=== PATIENT | female | born 1985 | race Caucasian/White ===

== ENCOUNTER 2021-05-03 09:33 | Emergency (ER) | payer OTHER ==
[~2021-05-03] VITALS: Ht 162.6 cm; Wt 56.7 kg
[2021-05-03] MEDS ORDERED: PROSCAR5 MG PO (10:06)
[2021-05-03] MEDS ORDERED: PERCOCET 5-3251 EACH PO (13:16)
== END 2021-05-03 14:28 | disposition home or self-care (01) ==
LOC: ER 09:33
DX: S52.592A Other fractures of lower end of left radius, initial encounter for closed fracture (principal); V00.841A Fall from standing electric scooter, initial encounter; Y93.89 Activity, other specified; Y92.488 Other paved roadways as the place of occurrence of the external cause; Y99.8 Other external cause status